=== PATIENT | male | born 1995 | race American Indian/Alaskan Native ===

== ENCOUNTER 2019-07-26 02:19 | Emergency (ER) | payer BC ==
[2019-07-26 02:32] VITALS: BP 122/73
[2019-07-26] MEDS ORDERED: IBUPROFEN 600 MG TAB PO ONE (03:55)
[2019-07-26] MEDS ORDERED: predniSONE 20 MG TAB PO ONE (03:55)
--- NOTE | 2019-07-26 05:06 | Emergency Department Report ---
- General Chief Complaint: Upper Respiratory Infection Stated Complaint: FEVER/ FLU LIKE SYMPTOMS Source: patient Mode of arrival: Ambulatory Limitations: No Limitations - History of Present Illness Initial Comments: Patient is a 24-year-old -Swiss male with no past medical history who presents to the ED with complaint of acute onset persistent nasal and sinus congestion, frontal sinus pressure, frontal headache, sore throat, diffuse body aches and pains, dry cough for the last 4 days. He shouldn't states that he has been taking [id number] medications with no relief. Patient denies dizziness, chest pain, shortness of breath, abdominal pain, nausea, vomiting, syncope or chest pain. MD Complaint: fever, cough, sore throat, rhinorrhea, nasal congestion, sinus pain -: Sudden, days(s) (4) Severity: moderate Severity scale (0 -10): 5 Quality: sharp, aching Consistency: constant Improves With: nothing Worsens With: nothing Context: sick contacts Associated Symptoms: denies other symptoms, fever, chills, myalgias, headache, rhinorrhea, nasal congestion, sore throat, cough. denies: diaphoresis, stiff neck, shortness of breath, abdominal pain, nausea, vomiting, diarrhea, confusion, right sweats, epistaxis, ear pain Treatments Prior to Arrival: none - Related Data Previous Rx's Medication Instructions Recorded Last Taken Type Azithromycin [Zithromax TAB] 250 mg PO QDAY #6 tablet 07/26/19 Unknown Rx Brompheniramine/Pseudoephed/Dm 5 ml PO Q6H PRN #118 ml 07/26/19 Unknown Rx [Bromfed Dm Cough Syrup] Ibuprofen [Motrin] 600 mg PO Q8H PRN #20 tablet 07/26/19 Unknown Rx methylPREDNISolone [Medrol 4MG 4 mg PO DAILY #21 tab.ds.pk 07/26/19 Unknown Rx DOSEPAK (21 tabs)] Allergies Allergy/AdvReac Type Severity Reaction Status Date / Time coconut Allergy Angioedema Verified 07/26/19 02:51 ED Review of Systems ROS: Stated complaint: FEVER/ FLU LIKE SYMPTOMS Other details as noted in HPI Constitutional: chills, fever, malaise Eyes: denies: eye pain, eye discharge, vision change ENT: throat pain, congestion. denies: ear pain Respiratory: cough. denies: shortness of breath, wheezing Cardiovascular: denies: chest pain, palpitations Endocrine: no symptoms reported Gastrointestinal: denies: abdominal pain, nausea, diarrhea Genitourinary: denies: urgency, dysuria Musculoskeletal: arthralgia, myalgia. denies: back pain, joint swelling Skin: denies: rash, lesions Neurological: headache. denies: weakness, paresthesias Psychiatric: denies: anxiety, depression Hematological/Lymphatic: denies: easy bleeding, easy bruising ED Past Medical Hx - Past Medical History Previous Medical History?: No - Surgical History Past Surgical History?: No - Social History Smoking Status: Current Every Day Smoker Substance Use Type: None - Medications Home Medications: Home Medications Medication Instructions Recorded Confirmed Last Taken Type Azithromycin [Zithromax TAB] 250 mg PO QDAY #6 tablet 07/26/19 Unknown Rx Brompheniramine/Pseudoephed/Dm 5 ml PO Q6H PRN #118 ml 07/26/19 Unknown Rx [Bromfed Dm Cough Syrup] Ibuprofen [Motrin] 600 mg PO Q8H PRN #20 tablet 07/26/19 Unknown Rx methylPREDNISolone [Medrol 4MG 4 mg PO DAILY #21 tab.ds.pk 07/26/19 Unknown Rx DOSEPAK (21 tabs)] ED Physical Exam - General Limitations: No Limitations General appearance: alert, in no apparent distress - Head Head exam: Present: atraumatic, normocephalic, normal inspection - Eye Eye exam: Present: normal appearance, PERRL, EOMI Pupils: Present: normal accommodation - ENT ENT exam: Present: normal orophraynx, mucous membranes moist, TM's normal bilaterally, normal external ear exam, other (grossly congested nasal passages; severely tender frontal sinus to palpation) - Neck Neck exam: Present: normal inspection, full ROM - Respiratory Respiratory exam: Present: normal lung sounds bilaterally. Absent: respiratory distress, wheezes, rales, rhonchi, chest wall tenderness, accessory muscle use, decreased breath sounds - Cardiovascular Cardiovascular Exam: Present: regular rate, normal rhythm, normal heart sounds. Absent: systolic murmur, diastolic murmur, rubs, gallop - GI/Abdominal GI/Abdominal exam: Present: soft, normal bowel sounds. Absent: tenderness, guarding - Extremities Exam Extremities exam: Present: normal inspection, full ROM, normal capillary refill - Back Exam Back exam: Present: normal inspection, full ROM - Neurological Exam Neurological exam: Present: alert, oriented X3, CN II-XII intact, normal gait, reflexes normal - Psychiatric Psychiatric exam: Present: normal affect, normal mood - Skin Skin exam: Present: warm, dry, intact, normal color. Absent: rash ED Course Vital Signs 07/26/19 07/26/19 02:30 04:00 Temperature 100.1 F H Pulse Rate 87 Respiratory 18 16 Rate Blood Pressure 122/73 O2 Sat by Pulse 99 Oximetry - Reevaluation(s) Reevaluation #1: 07/26/19 05:04 This is a 24-year-old male who presented to the ED with acute onset nasal and sinus congestion, dry cough, diffuse body aches and pains, fever and chills and headache. In the ED, patient is febrile at 100F but is in no acute distress. Patient was treated for pain and fever. Patient was discharged home on medications. Patient symptoms are likely upper respiratory process sinusitis and bronchitis. Patient was advised to follow-up with his primary care physician in 5-7 days for reevaluation or return to the ED immediately if symptoms get worse. ED Medical Decision Making - Medical Decision Making This is a 24-year-old male who presented to the ED with acute onset nasal and sinus congestion, dry cough, diffuse body aches and pains, fever and chills and headache. In the ED, patient is febrile at 100F but is in no acute distress. Patient was treated for pain and fever. Patient was discharged home on medications. Patient symptoms are likely upper respiratory process sinusitis and bronchitis. Patient was advised to follow-up with his primary care physician in 5-7 days for reevaluation or return to the ED immediately if symptoms get worse - Differential Diagnosis Sinusitis; Pharyngitis, Bronchitis; Flu; pneumonia Critical care attestation.: If time is entered above; I have spent that time in minutes in the direct care of this critically ill patient, excluding procedure time. ED Disposition Clinical Impression: Acute upper respiratory infection Acute bronchitis Qualifiers: Bronchitis organism: other organism Qualified Code(s): J20.8 - Acute bronchitis due to other specified organisms Acute frontal sinusitis Qualifiers: Recurrence: recurrent Qualified Code(s): J01.11 - Acute recurrent frontal sinusitis Disposition: - TO HOME OR SELFCARE Is pt being admited?: No Does the pt Need Aspirin: No Condition: Stable Instructions: Acute Bronchitis (ED), Acute Bacterial Rhinosinusitis (ED), Pharyngitis (ED), Fever in Adults (ED) Additional Instructions: Take medication with food, drink plenty of fluids and follow-up with your primary care physician in 5-7 days for reevaluation. Return to the ED immediately if symptoms get worse. Prescriptions: Brompheniramine/Pseudoephed/Dm [Bromfed Dm Cough Syrup] 5 ml PO Q6H PRN #118 ml PRN Reason: Cough methylPREDNISolone [Medrol 4MG DOSEPAK (21 tabs)] 4 mg PO DAILY #21 tab.ds.pk Ibuprofen [Motrin] 600 mg PO Q8H PRN #20 tablet PRN Reason: Pain Azithromycin [Zithromax TAB] 250 mg PO QDAY #6 tablet Referrals: PRIMARY CARE, [Primary Care Provider] - 3-5 Days Forms: Work/School Release Form(ED) Time of Disposition: 05:08 Print Language: SLOV[place]
== END 2019-07-26 05:33 | disposition home or self-care (01) ==
LOC: ED 02:19
DX: J06.9 Acute upper respiratory infection, unspecified (principal); J20.9 Acute bronchitis, unspecified; J01.10 Acute frontal sinusitis, unspecified; F17.200 Nicotine dependence, unspecified, uncomplicated; Z79.899 Other long term (current) drug therapy; Z91.018 Allergy to other foods
CPT/HCPCS: 99282; J7512